=== PATIENT | female | born 1955 | race Caucasian/White ===

== ENCOUNTER 2016-09-02 20:03 | Emergency (ER) | payer MEDICARE, BC ==
[2016-09-02 20:00] LABS: BASOPHILS 0.5 %; BASOPHILS ABSOLUTE 0.05 10/3/uL (0.0-0.16); EOSINOPHILS 2.2 %; ER CBC TAT 0 Hrs 07 Mins; HEMATOCRIT 38.4 % (36.0-48.0); HEMOGLOBIN 12.3 g/dL (12.0-16.0); IMMATURE GRANULOCYTES 0.5 %; IMMATURE GRANULOCYTES ABSOLUTE 0.05 10/3/uL (0.0-0.11); LYMPHOCYTES 16.2 %; LYMPHOCYTES ABSOLUTE 1.51 10/3/uL (0.67-4.30); MEAN CORPUSCULAR HEMOGLOB 28.5 pg (26.0-34.0); MEAN CORPUSCULAR VOLUME 88.9 fL (80-100); MEAN PLATELET VOLUME 10.1 fL (9.2-13.0); MONOCYTES 5.7 %; MONOCYTES ABSOLUTE 0.53 10/3/uL (0.21-1.20); NEUTROPHILS 74.9 %; NEUTROPHILS ABSOLUTE 6.96 10/3/uL (2.02-8.40); PLATELET COUNT 243 10/3/uL (150-400); RBC DISTRIBUTION WIDTH 16.5 % (12.0-16.0); RED CELL COUNT 4.32 10/6/uL (4.0-5.6); WHITE BLOOD CELLS 9.3 10/3/uL (4.5-10.5)
[2016-09-02 20:01] LABS: MANUAL DIFF NO %
[~2016-09-02 20:03] MED LIST: ALBUTEROL5 INH; ALVESCO INHALER; AMB10 PO; AMB5 PO; AMBIEN CR12.5 MG PO; AMIT10 PO; ASTELIN NAS; ATV1 PO; AUG500 PO; B12 IM; B12 INJECTION IM; B121000P IM; BUSPAR15 M1 PO; BUSPAR5 PO; CARD120 PO; CARDCD120 PO; CELEBREX2 PO; COUMADIN4 MG; COUMADIN4 MG PO; CYMBALTA30 PO; CYMBALTA60 PO; DALIRESP PO; DIGITEK0.25 MG PO; DILT-XR180 MG PO; DILT-XR240 MG PO; DIOV160 PO; DURICEF PO; DYAZIDE1 CAP PO; ERY-TAB250 MG PO; ERYTHROCIN250 MG PO; ESTRACE V; ESTRACE VAGIN42.5 GM V; EVAMIST1.53 MG TD; FENESIN IR400 MG PO; FLEX PO; FLONASE NAS; GLUCOTROL5 PO; HORIZANT PO; IRON325 MG PO; KAPIDEX30 MG PO; KAPIDEX60 MG PO; KLONO5 PO; KRILL OIL PO; L40 PO; LAMICTAL10 PO; LAN125 PO; LEVEMFLXPN SC; LIBRAX PO; LIPITOR20 PO; LOP25 PO; LYRICA100 MG; LYRICA100 MG PO; LYRICA50 PO; MACROBID PO; MIRAPEX250 PO; MIRAPEX5; MIRAPEX5 PO; NEUR100 PO; NEUR300 PO; NEXIUM40 PO; NORV5 PO; P10 PO; PAX20 PO; PAXIL30 MG PO; PAXIL40 MG PO; PERCOCET1 TA2 PO; PERCOCET1 TA4 PO; PR25 PO; PRAVAC PO; PRAVACHOL40 MG PO; PROAIR HFA INH; PROLOP100 PO; PROVHFA INH; QVAR80 MCG IN; RANITIDINE300 MG PO; RISPERDAL0.25 MG PO; SEROQUEL XR150 MG PO; SEROQUEL XR300 MG PO; SEROQUEL XR400 MG PO; SEROQUEL1C PO; SEROQUEL200 MG PO; SEROQUEL300 MG PO; SINGULAIR1 PO; SYMBICORT 160/41 INH INH; THEO24300 PO; TOPXL25 PO; ULTRAM50 PO; VERELAN240 MG PO; VITAMIN B-121000 MC1 SL; VIVELLE-DOT0.075 MG TOP; X25 PO; X5 PO; XANAX1 MG PO; Z300 PO; ZANTAC 150 PO; ZANTAC300 MG PO; ZITHROMAX500 MG PO; ZOFRAN ODT4 MG SL; ZOFRAN4 PO; ZOL100 PO; ZOLOFT25 MG PO; ZYRTEC ALLGY10 MG PO; [UNRECOGNIZED DRUG - REMARK]
[2016-09-02 20:09] LABS: INTERNATIONAL NORMAL RATI 1.1 UNITS (-); PARTIAL THROMBO TIME 26.2 SEC (22.5-37.2)
[2016-09-02 20:13] LABS: ASCORBIC ACID (UR NOT ORDER) NEG (NEG); BILIRUBIN, URINE NEGATIVE (NEG); ER URINALYSIS TAT 0 Hrs 20 Mins; KETONE, URINE NEGATIVE (NEG); LEUKOCYTE ESTERASE(NOT OR NEG (NEG); NITRITE (URINE) NEG (NEG); WBC (NOT ORDERED) (RFLEX) 3 (0-5)
[2016-09-02 20:15] LABS: A/G RATIO 0.9 (0.7-1.9); ALBUMIN 3.4 G/DL (3.5-5.0); ALKALINE PHOSPHATASE 96 U/L (45-117); CALCIUM, SERUM 9.1 MG/DL (8.5-10.4); CHLORIDE, SERUM 107 MMOL/L (96-112); CO2 (CARBON DIOXIDE) 30 MMOL/L (24-34); GFR AFRICAN AMERICAN 64 ML/MIN (>=60); GFR NON AFRICAN AMERICAN 55 ML/MIN (>=60); GLOBULIN 3.6 G/DL (2.5-4.1); POTASSIUM, SERUM 4.7 MMOL/L (3.5-5.3); SGOT(AST) 47 U/L (5-40); SGPT(ALT) 39 U/L (5-65); SODIUM, SERUM 142 MMOL/L (135-148); TOTAL BILIRUBIN 0.4 MG/DL (0-1.2)
[2016-09-02 20:16] LABS: BUN (BLOOD UREA NITROGEN) 17 MG/DL (6-23); GLUCOSE, SERUM 111 MG/DL (60-99)
[2016-09-12] MEDS ORDERED: PREV30 PO (12:56)
[2016-09-12] MEDS ORDERED: DIOV160 PO (12:57)
[2016-09-12] MEDS ORDERED: LAN25 PO (12:59)
[2016-09-12] MEDS ORDERED: APRES10B PO (12:59)
[2016-09-12] MEDS ORDERED: LEXAPRO10 PO (13:01)
[2016-09-12] MEDS ORDERED: TRANXENE 7.5 M7.5 MG PO (13:02)
[2016-09-12] MEDS ORDERED: LYRICA50 PO (13:03)
[2016-09-12] MEDS ORDERED: JANUVIA100 MG PO (13:04)
[2016-09-12] MEDS ORDERED: LYRICA100 MG PO (13:04)
[2016-09-12] MEDS ORDERED: ESTRACE1 MG PO (13:05)
[2016-09-12] MEDS ORDERED: ZANTAC300 MG PO (13:05)
[2016-09-12] MEDS ORDERED: SINGULAIR1 PO (13:05)
[2016-09-12] MEDS ORDERED: MIRAPEX250 PO (13:07)
[2016-09-12] MEDS ORDERED: SEROQUEL400 MG PO (13:07)
[2016-09-12] MEDS ORDERED: AMB10 PO (13:08)
[2016-09-12] MEDS ORDERED: LIBRAX PO (13:08)
[2016-09-12] MEDS ORDERED: VITD PO (13:08)
[2016-09-12] MEDS ORDERED: ZOFRAN8 PO (13:09)
[2016-09-12] MEDS ORDERED: SYMBICORT 160/41 INH INH (13:09)
[2016-09-12] MEDS ORDERED: B121000P IM (13:10)
[2016-09-12] MEDS ORDERED: PROAIR HFA INH (13:10)
[2016-09-12] MEDS ORDERED: SPIRIVA RESPIMAT INH (13:10)
[2016-09-12] MEDS ORDERED: PCET PO (13:13)
== END 2016-09-02 22:22 | disposition home or self-care (01) ==
LOC: ER 20:03
PROVIDERS: Emergency Medicine
DX: R10.31 Right lower quadrant pain (principal); I10 Essential (primary) hypertension; E11.9 Type 2 diabetes mellitus without complications; Z88.1 Allergy status to other antibiotic agents; Z88.8 Allergy status to other drugs, medicaments and biological substances; Z79.899 Other long term (current) drug therapy; Z79.4 Long term (current) use of insulin; Z79.52 Long term (current) use of systemic steroids
CPT/HCPCS: 74176; 80053; 81001; 83690; 85025; 85610; 85730; 93005; 96374; 96375; 99284; J1170; J2405

== ENCOUNTER 2016-09-06 21:36 | Emergency (ER) | payer MEDICARE, BC ==
[2016-09-06 20:31] LABS: BASOPHILS 0.8 %; BASOPHILS ABSOLUTE 0.05 10/3/uL (0.0-0.16); EOSINOPHILS 2.3 %; EOSINOPHILS ABSOLUTE 0.15 10/3/uL (0.0-0.53); HEMATOCRIT 35.5 % (36.0-48.0); HEMOGLOBIN 11.4 g/dL (12.0-16.0); IMMATURE GRANULOCYTES 0.8 %; IMMATURE GRANULOCYTES ABSOLUTE 0.05 10/3/uL (0.0-0.11); LYMPHOCYTES 21.4 %; LYMPHOCYTES ABSOLUTE 1.39 10/3/uL (0.67-4.30); MEAN CORPUS HGB CONC 32.1 g/dL (32.0-36.0); MEAN CORPUSCULAR HEMOGLOB 28.4 pg (26.0-34.0); MEAN CORPUSCULAR VOLUME 88.3 fL (80-100); MEAN PLATELET VOLUME 9.7 fL (9.2-13.0); MONOCYTES ABSOLUTE 0.39 10/3/uL (0.21-1.20); NEUTROPHILS 68.7 %; NEUTROPHILS ABSOLUTE 4.46 10/3/uL (2.02-8.40); PLATELET COUNT 216 10/3/uL (150-400); RBC DISTRIBUTION WIDTH 16.7 % (12.0-16.0); RED CELL COUNT 4.02 10/6/uL (4.0-5.6); WHITE BLOOD CELLS 6.5 10/3/uL (4.5-10.5)
[2016-09-06 20:33] LABS: MANUAL DIFF NO %
[2016-09-06 20:39] LABS: ASCORBIC ACID (UR NOT ORDER) NEG (NEG); BILIRUBIN, URINE NEGATIVE (NEG); ER URINALYSIS TAT 0 Hrs 00 Mins; KETONE, URINE NEGATIVE (NEG); NITRITE (URINE) NEG (NEG); WBC (NOT ORDERED) (RFLEX) 7 (0-5)
[2016-09-06 20:47] LABS: A/G RATIO 0.9 (0.7-1.9); ALBUMIN 3.4 G/DL (3.5-5.0); ALKALINE PHOSPHATASE 95 U/L (45-117); CALCIUM, SERUM 8.5 MG/DL (8.5-10.4); CHLORIDE, SERUM 106 MMOL/L (96-112); CO2 (CARBON DIOXIDE) 27 MMOL/L (24-34); CREATININE 1.17 MG/DL (0.55-1.02); GFR AFRICAN AMERICAN 59 ML/MIN (>=60); GFR NON AFRICAN AMERICAN 51 ML/MIN (>=60); GLOBULIN 3.6 G/DL (2.5-4.1); GLUCOSE, SERUM 98 MG/DL (60-99); POTASSIUM, SERUM 4.4 MMOL/L (3.5-5.3); SGOT(AST) 44 U/L (5-40); SGPT(ALT) 36 U/L (5-65); SODIUM, SERUM 141 MMOL/L (135-148); TOTAL BILIRUBIN 0.4 MG/DL (0-1.2)
[2016-09-06 20:49] LABS: BUN (BLOOD UREA NITROGEN) 13 MG/DL (6-23)
[2016-09-06 20:55] LABS: LEUKOCYTE ESTERASE(NOT OR TRACE (NEG)
[2016-09-12] MEDS ORDERED: PREV30 PO (12:56)
[2016-09-12] MEDS ORDERED: DIOV160 PO (12:57)
[2016-09-12] MEDS ORDERED: APRES10B PO (12:59)
[2016-09-12] MEDS ORDERED: LAN25 PO (12:59)
[2016-09-12] MEDS ORDERED: LEXAPRO10 PO (13:01)
[2016-09-12] MEDS ORDERED: TRANXENE 7.5 M7.5 MG PO (13:02)
[2016-09-12] MEDS ORDERED: LYRICA50 PO (13:03)
[2016-09-12] MEDS ORDERED: JANUVIA100 MG PO (13:04)
[2016-09-12] MEDS ORDERED: LYRICA100 MG PO (13:04)
[2016-09-12] MEDS ORDERED: ZANTAC300 MG PO (13:05)
[2016-09-12] MEDS ORDERED: SINGULAIR1 PO (13:05)
[2016-09-12] MEDS ORDERED: ESTRACE1 MG PO (13:05)
[2016-09-12] MEDS ORDERED: SEROQUEL400 MG PO (13:07)
[2016-09-12] MEDS ORDERED: MIRAPEX250 PO (13:07)
[2016-09-12] MEDS ORDERED: VITD PO (13:08)
[2016-09-12] MEDS ORDERED: LIBRAX PO (13:08)
[2016-09-12] MEDS ORDERED: AMB10 PO (13:08)
[2016-09-12] MEDS ORDERED: SYMBICORT 160/41 INH INH (13:09)
[2016-09-12] MEDS ORDERED: ZOFRAN8 PO (13:09)
[2016-09-12] MEDS ORDERED: PROAIR HFA INH (13:10)
[2016-09-12] MEDS ORDERED: SPIRIVA RESPIMAT INH (13:10)
[2016-09-12] MEDS ORDERED: B121000P IM (13:10)
[2016-09-12] MEDS ORDERED: PCET PO (13:13)
== END 2016-09-07 00:25 | disposition home or self-care (01) ==
LOC: ER 21:36
PROVIDERS: Emergency Medicine
DX: K63.89 Other specified diseases of intestine (principal); G47.30 Sleep apnea, unspecified; J45.909 Unspecified asthma, uncomplicated; I10 Essential (primary) hypertension; F31.9 Bipolar disorder, unspecified; E11.9 Type 2 diabetes mellitus without complications; K57.30 Diverticulosis of large intestine without perforation or abscess without bleeding; R16.0 Hepatomegaly, not elsewhere classified; Z90.49 Acquired absence of other specified parts of digestive tract; Z90.710 Acquired absence of both cervix and uterus; Z87.442 Personal history of urinary calculi; Z88.1 Allergy status to other antibiotic agents; Z88.8 Allergy status to other drugs, medicaments and biological substances; Z91.048 Other nonmedicinal substance allergy status; Z79.891 Long term (current) use of opiate analgesic; Z79.899 Other long term (current) drug therapy; Z79.52 Long term (current) use of systemic steroids; Z79.4 Long term (current) use of insulin
CPT/HCPCS: 74177; 80053; 81001; 83690; 85025; 96365; 96375; 96376; 99284; J1956; Q9967

== ENCOUNTER 2016-09-13 08:57 | Day surgery (SDC) | payer MEDICARE, BC ==
--- NOTE | ~2016-09-13 | OP ---
Record Of Operation [facility] [address] [place]. [address] NAME: MARCO ANTONIO BAUMAN : 59 STATUS : [facility]#: [id number] AGE: 61 ADM/REG DATE : 09/13/16 MR#: [id number] REPORT SERV DATE: 09/13/16 DICTATED BY: ERIC SAM DATE: 09/13/16 REPORT STATUS : Draft TRANSCRIBED BY: MODL DATE: 09/13/16 DATE OF PROCEDURE: 09/13/2016 PREOPERATIVE DIAGNOSIS: Right lower quadrant pain, probable epiploic appendagitis. POSTOPERATIVE DIAGNOSIS: Right lower quadrant pain, probable epiploic appendagitis. OPERATION PERFORMED: 1. Diagnostic laparoscopy. 2. Laparoscopic appendectomy. SURGEON: Eric Sam M.D. ANESTHESIA: General. ESTIMATED BLOOD LOSS: Less than 10 mL. IV FLUIDS: Adequate. INDICATION FOR PROCEDURE: Ms. Bauman is a 61-year-old white female who was seen in my office twice now for right lower quadrant pain. She had a CT, which looks like being most likely epiploic appendagitis. She has had persistent pain and requesting laparoscopic resection and evaluation. INTRAOPERATIVE FINDINGS: Epiploic appendagitis with significant inflammation against the right lateral sidewall and involving the appendix. The appendix was removed. DESCRIPTION OF OPERATION: After appropriate sedation, patient was prepped and draped in proper sterile fashion. A 10 mm Optiview trocar was used to enter abdomen in the left upper quadrant. The abdomen was insufflated to 15 mmHg. Then placed a 12 mm right upper quadrant and a lower midline 5 mm trocar under direct visualization. There were adhesions to the previously placed periumbilical mesh. There was inflammation in the right lower quadrant with, what looked to be, some fat tightly adherent to the right lower abdominal wall. This was dissected off. The appendix was visualized. The tip of the appendix was also heading into, what looked to be, infarcted epiploic appendage from the cecum. This was dissected off. The appendix was then fully dissected out and transected at its base using a vascular load Endo-SUE stapler. This was placed in Endopouch and brought through the right upper quadrant trocar site. We then replaced that trocar. We visualized the right lower quadrant. No evidence of bleeding. We suctioned irrigated. We visualized the epiploic appendage, which was tight against the cecum. I did not feel like we could safely remove this. I felt like the inflammation should resolve without further intervention. We then instilled 20 mL of Marcaine to the right lower quadrant. We removed our trocars under direct visualization. There was no evidence of bleeding from the abdominal wall. The abdomen was then desufflated. The skin was closed using interrupted 3-0 Vicryl sutures. Steri-Strips and dressings were then placed. The patient was taken to recovery room in satisfactory condition. Record Of Operation [facility] [address] [facility] [place]. [address] NAME: MARCO ANTONIO BAUMAN : 59 STATUS : [facility] PAT#: [id number] AGE: 61 ADM/REG DATE : 09/13/16 MR#: [id number] REPORT SERV DATE: 09/13/16 DICTATED BY: ERIC SAM DATE: 09/13/16 REPORT STATUS : Draft TRANSCRIBED BY: BERT DATE: 09/13/16 TRISHA/BERT Eric Sam M.D. / [id number] CC: Layla Lutz M.D.
[~2016-09-13 08:57] MED LIST changes: +APRES10B PO; +ESTRACE1 MG PO; +JANUVIA100 MG PO; +LAN25 PO; +LEXAPRO10 PO; +PCET PO; +PREV30 PO; +SEROQUEL400 MG PO; +SPIRIVA RESPIMAT INH; +TRANXENE 7.5 M7.5 MG PO; +VITD PO; +ZOFRAN8 PO
== END 2016-09-13 16:38 | disposition home or self-care (01) ==
LOC: SDC 08:57
PROVIDERS: Specialist
PROC: 0DTJ4ZZ Resection of Appendix, Percutaneous Endoscopic Approach (ICD-10-PCS; principal; 2016-09-13 11:15)
DX: K63.89 Other specified diseases of intestine (principal); K21.9 Gastro-esophageal reflux disease without esophagitis; K58.9 Irritable bowel syndrome, unspecified; I10 Essential (primary) hypertension; E11.40 Type 2 diabetes mellitus with diabetic neuropathy, unspecified; J44.9 Chronic obstructive pulmonary disease, unspecified; J45.909 Unspecified asthma, uncomplicated; G47.33 Obstructive sleep apnea (adult) (pediatric); G25.81 Restless legs syndrome; M79.7 Fibromyalgia; M19.90 Unspecified osteoarthritis, unspecified site; F41.9 Anxiety disorder, unspecified; F31.9 Bipolar disorder, unspecified; Z98.890 Other specified postprocedural states; Z82.49 Family history of ischemic heart disease and other diseases of the circulatory system; Z80.3 Family history of malignant neoplasm of breast; Z88.1 Allergy status to other antibiotic agents; Z88.8 Allergy status to other drugs, medicaments and biological substances; Z91.018 Allergy to other foods; Z79.818 Long term (current) use of other agents affecting estrogen receptors and estrogen levels; Z79.84 Long term (current) use of oral hypoglycemic drugs; Z79.899 Other long term (current) drug therapy; Z90.89 Acquired absence of other organs; Z96.653 Presence of artificial knee joint, bilateral; Z90.710 Acquired absence of both cervix and uterus; Z90.49 Acquired absence of other specified parts of digestive tract
CPT/HCPCS: 82962; 88304; 93005; 94640; A9270-GY; J0330; J0690; J1885; J2250; J2270; J2370; J2405; J2550; J2710; J3010